=== PATIENT | female | born 1955 | race Caucasian/White ===

== ENCOUNTER → 2022-03-16 | Day surgery (SDC) | payer MEDICARE, MEDICAID, SELFPAY ==
[2022-03-16] MEDS: Lidocaine Jelly 2% 20 ML Syringe (URO-JET) 1 APPLIC (08:03)
[2022-03-16 08:05] VITALS: BP 136/79; PULSE 70; RESP 15; TEMP 36.6; O2SAT 97
--- NOTE | 2022-03-16 09:00 | RAD_ITS ---
STUDY: AIR CONTRAST UPPER GI SERIES and esophagram. REASON FOR EXAM: Female, 67 years old. K44.9 - Diaphragmatic hernia without obstruction or gangrene FLUOROSCOPY TIME (if supplied): (50 seconds) minutes/seconds. 22 images were obtained. TECHNIQUE: SINGLE CONTRAST AND AIR CONTRAST FLUOROSCOPIC IMAGES. COMPARISON: None. FINDINGS: The cervical esophagus demonstrates normal motility without aspiration. There is no stricture or extrinsic mass effect. No intraluminal polypoid mass is identified. The thoracic esophagus distends well without stricture or mucosal fold thickening. No mucosal ulcerations are identified. There is no extrinsic mass effect. There are no diverticula. The patient ingested a 12 mm tablet of barium without any difficulty. No hiatal hernia or gastroesophageal reflux was identified. The stomach distends well without mucosal fold thickening or mucosal ulceration. There is no intraluminal mass. The duodenal bulb is freely distensible without deformity or ulceration. The duodenal sweep is normal in position and caliber. RAD/Upper GI w/BA Swallow IMPRESSION: Normal air-contrast upper GI series and esophagram.. Electronically Signed: Stephan Yadav MD at 12:41 EST ,
== END | disposition home or self-care (01) ==
PROVIDERS: Visit Provider Surgery
PROC: F00ZJWZ Instrumental Swallowing and Oral Function Assessment using Swallowing Equipment (ICD-10-PCS; CPT 43235; principal; 2022-03-16 07:55)
DX: K21.9 Gastro-esophageal reflux disease without esophagitis (principal)
CPT/HCPCS: 91010; 74246

== ENCOUNTER 2024-02-23 10:08 | Emergency (ER) | payer MEDICARE, MEDICAID, SELFPAY ==
[2024-02-23 10:09] VITALS: BP 140/81; PULSE 83; RESP 18; TEMP 36.4; O2SAT 100; BMI 31.7
--- NOTE | 2024-02-23 10:14 | EDS_ITS ---
HPI History of Present Illness Chief Complaint: Abscess PFSH PFS Home Medications ?Medication ?Instructions ?Recorded ?Last Taken ?Type aspirin 81 mg tablet,delayed 81 mg PO DAILY 03/09/22 Unknown History release (Lonnie Low Dose Aspirin) cholecalciferol (vitamin D3) 25 25 mcg PO DAILY 03/09/22 Unknown History mcg (1,000 unit) capsule hydrochlorothiazide 12.5 mg capsule 12.5 mg PO DAILY 03/09/22 Unknown History loratadine 10 mg tablet (Allergy 10 mg PO DAILY 03/09/22 Unknown History Relief (loratadine)) multivitamin 1 tab PO DAILY 03/09/22 Unknown History omega-3 fatty acids-fish oil 360 1 cap PO DAILY 03/09/22 Unknown History mg-1,200 mg capsule (Fish Oil) omeprazole 20 mg capsule,delayed 20 mg PO DAILY 03/09/22 Unknown History release Allergy/AdvReac Type Severity Reaction Status Date / Time No Known Allergies Allergy Verified 02/23/24 10:12 Family History Sister Cancer Diabetes Heart disease Hypertension Sister Cancer Father Cancer prostate EXAM Physical Exam Const Vital Signs: 02/23/24 10:09 Temperature 97.5 F L Temperature Source Oral Pulse Rate 83 Respiratory Rate 18 Blood Pressure 140/81 H Blood Pressure Mean 100 Pulse Ox 100 Oxygen Delivery Method Room Air MDM MDM MDM Narrative Medical decision making narrative: HISTORY OF PRESENT ILLNESS: 68-year-old female presents concern for bump on/below her tailbone. This began 4 days ago. No fever, no vomiting, no melena, hematochezia. REVIEW OF SYSTEMS: Pertinent positives: Tailbone pain Pertinent negatives: Fevers, vomiting PHYSICAL EXAM: Nursing triage notes reviewed, Vital signs reviewed Constitutional: please see mdm : No CVAT Extremities: No edema Back: Performed packaging materials inspector in room rectal exam: Performed packaging materials inspector in room showed external hemorrhoids at the 12 o'clock position Skin: No rash or lesions noted MEDICAL DECISION MAKING: Chief Complaint: External records reviewed: Reviewed prior allergies, problem list, current medications Factors affecting care: Hypertension, hiatal hernia Social determinants of health: none History obtained from others: none Consults: none MDM Narrative: The patient was initially hemodynamically stable, afebrile and nontoxic- appearing. Exam consistent with external and likely internal hemorrhoids I considered the following differential diagnosis: Pilonidal cyst, perirectal abscess, hemorrhoid Exam consistent with hemorrhoids. I did perform a bedside ultrasound to look in the gluteal cleft area for any signs of abscess. No signs were found. No indication for antibiotics. Give the patient general surgery and GI follow-up. The patient and/or family, caregivers express understanding. The patient and/or family, caregivers agrees with the plan. Shared decision making: I will have a discussion with the patient and or visitors regarding risk/benefits of further testing or admission. They will be made aware of of the risk/benefits inherent in this decision they will be given the opportunity to voice understanding. Total critical care time today provided was at least 0 minutes. This excludes separately billable procedures. Critical care time (if documented) is secondary to the patient having high probability of clinically significant/life threatening deterioration in the patient's condition which required my urgent intervention. Impression: 1. Hemorrhoids Dispo: Discharge home This note was generated with [employer] dictation software. It may contain incorrect words, spelling, and punctuation that were not noted in review of the chart prior to signing. Discharge Plan Triage Chief Complaint: Abscess ED Provider: Germán Clemens Dx/Rx/DC Orders Instructions: ED Hemorrhoids Prescriptions: No Action loratadine [Allergy Relief (loratadine)] 10 mg tablet 10 mg PO DAILY cholecalciferol (vitamin D3) 25 mcg (1,000 unit) capsule 25 mcg PO DAILY aspirin [Lonnie Low Dose Aspirin] 81 mg tablet,delayed release (DR/EC) 81 mg PO DAILY multivitamin Tablet 1 tab PO DAILY omega-3 fatty acids-fish oil [Fish Oil] 360-1,200 mg capsule 1 cap PO DAILY omeprazole 20 mg capsule,delayed release(DR/EC) 20 mg PO DAILY hydrochlorothiazide 12.5 mg capsule 12.5 mg PO DAILY Primary Care Provider: Prerna Austin Referrals: John Gordon MD [Med Staff - Active Staff] - Activity Restrictions/Additional Instructions: Thank you for trusting us with your care today! Your exam was consistent with external/internal hemorrhoids. Please take Tylenol (2 pills, 650 mg), ibuprofen (2 pills, 400 mg) every 6 hours as needed for pain and fever control. Please return to the emergency department if your symptoms change or worsen. Please follow with General Surgery (Dr. Gordon) for further outpatient evaluation and management. Print Language: Romanian Disposition Disposition: Home, Self Care
== END 2024-02-23 11:20 | disposition home or self-care (01) ==
PROVIDERS: Emergency Provider Emergency Medicine; PCP Internal Medicine; Visit Provider Emergency Medicine
DX: K64.4 Residual hemorrhoidal skin tags (principal); K44.9 Diaphragmatic hernia without obstruction or gangrene; I10 Essential (primary) hypertension; Z79.899 Other long term (current) drug therapy; Z79.82 Long term (current) use of aspirin
CPT/HCPCS: 99282